=== PATIENT | female | born 1955 | race Caucasian/White ===

== ENCOUNTER 2021-01-09 05:35 | Day surgery (SDC) | payer BC ==
[~2021-01-09] VITALS: Ht 152.4 cm; Wt 65.0 kg
[2021-01-09] VITALS (11 sets, daily range): BP systolic 107–157; BP diastolic 48–88; PULSE 74–87; TEMP 97.5–98.2
[2021-01-09] MEDS ORDERED: EXFORGE 10 MG-31 TAB PO (06:40)
[2021-01-09] MEDS ORDERED: NORCO 325 MG-51 TAB PO (06:41)
[2021-01-09] MEDS ORDERED: VITAMIN C500 MG PO (06:41)
[2021-01-09] MEDS ORDERED: PEPCID 20MG TAB20 MG PO (06:41)
[2021-01-09] MEDS ORDERED: FOLIC ACID 40400 MCG PO (06:42)
[2021-01-09] MEDS ORDERED: NATURAL IRON65 MG PO (06:42)
[2021-01-09] MEDS ORDERED: COLACE 100100 MG/CAP PO (06:44)
--- NOTE | 2021-01-09 06:53 | NUR ---
TAKEN TO PACU FOR L SHOULDER BLOCK
--- NOTE | 2021-01-09 11:50 | NUR ---
Arrives from pacu via bed and HEAD OF MATHEMATICS at 1127. Denies pain or any other complaints. in room at bedside. Alert, oriented to person, place, time, and situation. Oriented to room and call light system. Pt aware that she must have assistance when getting out of bed. Oxygen on at 2L/NC. Call light within reach. IV fluids infusing to RFA iv site, without s/s of complications. Sipping on ice water, denies nausea. VALE hose and SCD's on. Foam dressing to left shoulder is CDI, sling in place. Pt can wiggle fingers slightly, cap refil WNL.
--- NOTE | 2021-01-09 12:36 | NUR ---
Pt has unmeasured urine void in bed sanedrs, clear and yellow. eats jello without c/o n/v. Bowel sounds active, does not yet pass gas. remains at bedside. call light within reach.
--- NOTE | 2021-01-09 16:10 | NUR ---
TAKING OVER PATIENT'S CARE. RECEIVED REPORT FROM TYLER ELLINGTON.
[2021-01-10 04:35] VITALS: BP 144/74; PULSE 68; TEMP 97.7
[2021-01-10 06:44] LABS: HEMATOCRIT 39.5 % (37.0-47.0); HEMOGLOBIN 12.3 g/dl (12.5-16.0)
--- NOTE | 2021-01-10 07:02 | NUR ---
PATIENT ALERT AND ORIENTED. POD#1 S/P LTS. PATIENT INDEPENDENT IN ROOM. SKIN WARM TO TOUCH, NUMBNESS AND TINGLING TO L HAND IMPROVED. OXYCODONE GIVEN FOR MILD PAIN. VITAL SIGNS STABLE. WILL CONINUE TO MONITOR.
--- NOTE | 2021-01-10 08:00 | NUR ---
PATIENT IS A&O. VSS. REPORTS PAIN IN LEFT SHOULDER AT 3/10, AUTOMOTIVE DIAGNOSTIC TECHNICIAN GAVE PAIN MEDS BEFORE SHIFT CHANGE. LTS POST OP DRESSING REMOVED AND AQUACEL DRESSING APPLIED. ABDUCTOR SLING TO LUE. HEAD TO TOE ASSESSMENT WNL. NO C/O N/V. DC'D RIGHT FORARM IV FOR PENDING DISCHARGE TODAY. AM MEDS GIVEN. INDEPENDENT IN ROOM. NO OTHER NEEDS.
[2021-01-10 08:29] VITALS: BP 148/84; PULSE 84; TEMP 97.6
[2021-01-10] MEDS ORDERED: ASPI325T6 PO (09:44)
[2021-01-10] MEDS ORDERED: ROXICODONE 55 MG/TAB PO (09:45)
[2021-01-10] MEDS ORDERED: NORCO 325 MG-51 TAB PO (09:46)
--- NOTE | 2021-01-10 10:26 | NUR ---
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
[2021-01-10 11:46] VITALS: BP 142/86; PULSE 82; TEMP 98.3
--- NOTE | 2021-01-10 14:09 | NUR ---
PATIENT DISCHARGING HOME VIA AMBULATORY TO PERSONAL VEHICLE WHERE IS WAITING. GAVE DISCHARGE INSTRUCTIONS, E-SCRIPTS SENT, AND DISCUSSED F/U APTS. ANSWERED QUESTIONS/CONCERNS. LTS DSG CHANGED THIS AM TO AQUACEL & IV DC'D. PATIENT IS DRESSED, PACKED AND DISCHARGED.
== END 2021-01-10 14:10 | disposition home or self-care (01) ==
LOC: SURG 05:35 → INPTSU 05:35 → SDCO 05:35 → EDSTATUS 07:30 → SURG 07:30 → INPTSU 11:27 → SURG 11:27 → SDCO 01-10 14:10 → SURG 01-10 14:10
PROVIDERS: Orthopaedic Surgery
DX: M19.012 Primary osteoarthritis, left shoulder (principal); M25.712 Osteophyte, left shoulder; G89.29 Other chronic pain; R97.1 Elevated cancer antigen 125 [CA 125]; I10 Essential (primary) hypertension; E78.5 Hyperlipidemia, unspecified; K21.9 Gastro-esophageal reflux disease without esophagitis; K59.00 Constipation, unspecified; M54.9 Dorsalgia, unspecified; M19.90 Unspecified osteoarthritis, unspecified site; Z79.899 Other long term (current) drug therapy
CPT/HCPCS: OP; A4314; A4619; A9284; C1713; C1776; J0171; J0690; J1100; J1885; J2250; J2405; J2704; J2795; J3010; J7120